=== PATIENT | male | born 1995 | race African-American/Black ===

== ENCOUNTER 2020-07-31 12:21 | Emergency (ER) | payer OTHER | END 2020-07-31 13:35 | disposition left against medical advice (07) | LOC: CSHERS 12:21 | DX: Z53.21 Procedure and treatment not carried out due to patient leaving prior to being seen by health care provider (principal) ==

== ENCOUNTER 2020-08-23 00:38 | Emergency (ER) | payer OTHER, SELFPAY ==
[2020-08-23] MEDS ORDERED: Ibuprofen 200 MG TAB ONE (01:00)
[2020-08-23] MEDS ORDERED: Boostrix 0.5 ML (Tdap) VIAL ONE (01:01)
[2020-08-23] MEDS ORDERED: Acetaminophen 500 MG TAB ONE (01:01)
== END 2020-08-23 02:34 | disposition home or self-care (01) ==
LOC: CSHERS 00:38
DX: S89.101A Unspecified physeal fracture of lower end of right tibia, initial encounter for closed fracture (principal); W22.8XXA Striking against or struck by other objects, initial encounter; Z23 Encounter for immunization
CPT/HCPCS: 90471; 90715

== ENCOUNTER 2020-08-23 23:06 | Emergency (ER) | payer SELFPAY ==
[2020-08-23] MEDS ORDERED: Ketorolac Tromethamine 15 MG/ML VIAL ONE (23:48)
[2020-08-23] MEDS ORDERED: Cephalexin 250 MG CAP ONE (23:49)
== END 2020-08-24 00:05 | disposition home or self-care (01) ==
LOC: CSHERS 23:06
DX: S82.301A Unspecified fracture of lower end of right tibia, initial encounter for closed fracture (principal); F17.210 Nicotine dependence, cigarettes, uncomplicated; X58.XXXA Exposure to other specified factors, initial encounter
CPT/HCPCS: 96372; 99283; J1885